=== PATIENT | female | born 1990 | race Caucasian/White ===

== ENCOUNTER 2017-12-16 17:15 | Inpatient (IN) | payer OTHER ==
[2017-12-16] MEDS ORDERED: Lactated Ringer's 1,000 ML IV ONE (17:38)
[2017-12-16] MEDS ORDERED: Lactated Ringer's 1,000 ML IV SCH (17:45)
[2017-12-16 18:01] LABS: BASO % 0.2 % (0.0-2.0); EOS # 0.1 K/uL (0.0-0.7); EOS % 0.8 % (0.0-4.0); HEMOGLOBIN 12.9 g/dL (11.0-16.0); LYMPH % 19.7 % (20.0-40.0); MEAN CELL VOLUME 91.7 fL (81.0-99.0); MEAN CORPUSCULAR HEMOGLOBIN 31.4 pg (27.0-31.0); MEAN CORPUSCULAR HGB CONC 34.3 g/dL (33.0-37.0); MEAN PLATELET VOLUME 7.8 fL (7.2-11.7); MONO # 0.7 K/uL (0.0-0.8); MONO % 6.4 % (0.0-10.0); NEUT # 7.5 K/uL (1.8-7.0); NEUT % 72.9 % (50.0-75.0); RBC 4.11 Mil/uL (3.80-5.20); RED CELL DISTRIBUTION WIDTH 13.6 % (11.5-14.5); WHITE BLOOD COUNT 10.3 K/uL (4.8-10.8)
[2017-12-16 18:13] LABS: SQUAMOUS EPITHIAL 2 /hpf (0-5); URINE BACTERIA RARE (<OCC); URINE BILIRUBIN NEGATIVE (NEGATIVE); URINE BLOOD NEGATIVE (NEGATIVE); URINE CLARITY Clear (Clear); URINE COLOR Yellow (YELLOW); URINE GLUCOSE (UA) NORMAL (Normal); URINE HYALINE CAST 0-2 /lpf (0-2); URINE LEUKOCYTE ESTERASE NEG Leu/uL (Negative); URINE PROTEIN NEGATIVE (NEGATIVE); URINE UROBILINOGEN NORMAL mg/dL (0.2-1.0)
[2017-12-16 18:18] LABS: ALB/GLOB RATIO 1.2 (1.0-2.1); ALT/SGPT 20 U/L (9-52); AST/SGOT 26 U/L (14-36); BLOOD UREA NITROGEN 9 mg/dL (7-17); CALCIUM 9.4 mg/dl (8.6-10.4); GFR NON-AFRICAN AMERICAN > 60
[2017-12-16] MEDS ORDERED: Bupivacaine HCl/FentaNYL Cit 100 ML EPI ONE (18:32)
[2017-12-16] MEDS ORDERED: ePHEDrine 50 mg/ml Inj ONE (19:30)
--- NOTE | 2017-12-16 19:40 | OBHP ---
Datetime: 12/16/2017 19:39 Dilatation, Provider: 7 Effacement, Provider: 90 Datetime: 12/16/2017 17:35 IP Adm Impression: Term, intrauterine IP Admit Plan: Admit to unit; Initiate labor protocol Admit Comment, IP Provider: Patient is a 27 year old at 38.6 weeks with WILBERTO (12/24/17) by US at 12 weeks and LMP (03/19/17), who presents to the [facility] with complaints of contractions that started 10 minutes before arrival to, which are every 2-3 minutes apart. Patient was seen in the office this morning with no cervical change noted on VE. Patient admits to movement but denies vaginal ble eding and leakage of fluid : Dr. 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 1. Admit to unit 2. Admission labs and orders 3. CEFM and [place] 4. LR @125MLS/HR 5. SVE 6. Epidural when patient requests 7. Expectant management 8. 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 Chaz Fernando DO, PGY-2 Attending Note: Patient seen and evaluated by me with the resident. I agree with the above. 27 y. o. P0, 38w 6d, latent phase of labor. GBS (-). Categoary 1 tracing. Patient is clincially stable. Spo ke with Dr. Rodriguez: admit, epdiural, admission labs, continuous EFM, anticipate vaginal delivery FHR - Baseline A Provider: 150 Contraction Comments Provider: 1-2 minutes Comments, ACOG Physical Exam: Gen: NAD Cardio: RRR, +S1, +S2 Pulm: CTA bilaterally Abdomen: Gravid, Tight( due to contraction) at the time of exam Ext: No edema, no cyanosis and no clubbing SVE: 2cm/80/0 EFM: 150, + accelerations TOCO: Contractions every 1-2 minutes Gestation - Est Wks by US: 38.6 IP Hx Assessment: The History has been Reviewed and is Current EGA AdmitDate IP: 38.6 IP Indication for Induction: Not Applicable IP Chief Complaint: Uterine contractions NICHD Variability Prov Fetus A: Moderate 6-25bpm NICHD Accel Fetus A IP Provider: 15X15 FHR Category Provider Fetus A: Category I NICHD Decel Fetus A IP Provider: None Station, Provider: 0
--- NOTE | 2017-12-16 19:43 | OBADHP ---
Datetime: 12/16/2017 19:39 FHR - Baseline A Provider: 150 Membranes, Provider: Intact Contraction Comments Provider: 1-2 Vital Signs Provider: Reviewed NICHD Variability Prov Fetus A: Moderate 6-25bpm NICHD Accel Fetus A IP Provider: 15X15 FHR Category Provider Fetus A: Category I NICHD Decel Fetus A IP Provider: None Dilatation, Provider: 7 Effacement, Provider: 90 Station, Provider: 0 Datetime: 12/16/2017 17:35 Admit Comment, IP Provider: Patient is a 27 year old at 38.6 weeks with WILBERTO (12/24/17) by US at 12 weeks and LMP (03/19/17), who presents to the [facility] with complaints of contractions that started 10 minutes before arrival to, which are every 2-3 minutes apart. Patient was seen in the office this morning with no cervical change noted on VE. Patient admits to movement but denies vaginal ble eding and leakage of fluid : Dr. Rodriguez OB Hx: G1, no complications Rn Progressive Care Unit Hx: Menarche: 15 Triad: 15/ regular Denies Hx of fibroids, ovarian cyst, STDs PMHx: Denies PSHx: Denies FHx: Denies Medications: vitamins Allergies: NKDA VS: See chart, WNL PE: See in PE comments A/P: Patient is a 27 year old at 38.6 weeks with WILBERTO (12/24/17) by US and LMP (03/19/17), wh o presents to the [facility] with complaints of contractions that started 10 minutes before arrival to, whi ch are every 2-3 minutes apart. 1. Admit to unit 2. Admission labs and orders 3. CEFM and [place] 4. LR @125MLS/HR 5. SVE 6. Epidural when patient requests 7. 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 Chaz Fernando DO, PGY-2 Attending Note: Patient seen and evaluated by me with the resident. I agree with the above. 27 y. o. P0, 38w 6d, latent phase of labor. GBS (-). Categoary 1 tracing. Patient is clincially stable. Spo ke with Dr. Rodriguez: admit, epdiural, admission labs, continuous EFM, anticipate vaginal delivery Comments, ACOG Physical Exam: Gen: NAD Cardio: RRR, +S1, +S2 Pulm: CTA bilaterally Abdomen: Gravid, Tight( due to contraction) at the time of exam Ext: No edema, no cyanosis and no clubbing SVE: 2cm/80/0 EFM: 150, + accelerations TOCO: Contractions every 1-2 minutes Gestation - Est Wks by US: 38.6 IP Hx Assessment: The History has been Reviewed and is Current IP Chief Complaint: Uterine contractions EGA AdmitDate IP: 38.6 IP Adm Impression: Term, intrauterine IP Admit Plan: Admit to unit; Initiate labor protocol
--- NOTE | 2017-12-16 20:43 | OBPN ---
Datetime: 12/16/2017 20:39 IP Progress Impression: Normal progression of labor IP Procedures: Sterile Vag Exam IP Progress Plan: Continue present management Contraction Comments Provider: q1-3 FHR - Baseline A Provider: 130 IP Progress Note Comment: pt was seen at bed side ve fd/100/0 s/p epidural will startb pushing soon anticipate NICHD Accel Fetus A IP Provider: 15X15 FHR Category Provider Fetus A: Category I NICHD Variability Prov Fetus A: Moderate 6-25bpm Dilatation, Provider: 10 Effacement, Provider: 100 Station, Provider: 0 NICHD Decel Fetus A IP Provider: None Datetime: 12/16/2017 19:39 Membranes, Provider: Intact Vital Signs Provider: Reviewed Datetime: 12/16/2017 17:35 Gestation - Est Wks by US: 38.6
--- NOTE | 2017-12-16 20:43 | OBADHP ---
Datetime: 12/16/2017 20:39 FHR - Baseline A Provider: 130 Contraction Comments Provider: q1-3 NICHD Variability Prov Fetus A: Moderate 6-25bpm NICHD Accel Fetus A IP Provider: 15X15 FHR Category Provider Fetus A: Category I NICHD Decel Fetus A IP Provider: None Dilatation, Provider: 10 Effacement, Provider: 100 Station, Provider: 0 Datetime: 12/16/2017 17:35 EGA AdmitDate IP: 38.6 IP Adm Impression: Term, intrauterine ; Active labor
[2017-12-16] MEDS ORDERED: Tdap Vaccine 0.5 ml Vial (10-64 yrs) IM ONE (20:46)
[2017-12-16] MEDS ORDERED: Oxytocin 30 UNIT 30 UNITS/500 ML BAG IV ONE (21:00)
--- NOTE | 2017-12-17 00:39 | OBDS ---
DELIVERY PERSONNEL Nurse Repair Operator Certified: N/A Delivery Doctor: Katey Rodriguez MD Scrub Nurse: N/Bernabe Sill Worker: Charline Prado RN Anesthesiologist: DR PEREYRA Counselor At Law: SAME Resident: N/A MATERNAL INFORMATION Delivery Anesthesia: Epidural Estimated Blood Loss (ml): 400 Maternal Complications: None Provider Comments: baby de;liverd in dee dee. cord arround baby rml made. end clean 9/9 cord gas sent no com LABOR SUMMARY EDC: 12/24/2017 00:00 No. Babies in Womb: 1 Attempted: No Labor Anesthesia: None LABOR INFORMATION Reason for Induction: Not Applicable Onset of Labor: 12/16/2017 17:00 Complete Dilatation: 12/16/2017 20:35 Group B Beta Strep: Negative Steroids Given: None Reason Steroids Not Administered: Not Applicable MEMBRANES Membranes Rupture Method: Artificial Rupture of Membranes: 12/16/2017 20:35 Length of Rupture (hrs): 3.68 Amniotic Fluid Color: Clear Amniotic Fluid Amount: Moderate Amniotic Fluid Odor: Normal STAGES OF LABOR Stage 1 hrs: 3 Stage 1 min: 35 Stage 2 hrs: 3 Stage 2 min: 41 Stage 3 hrs: 0 Stage 3 min: 1 Total Time in Labor hrs: 7 Total Time in Labor min: 17 VAGINAL DELIVERY Laceration Extension: Second Degree Laceration Type: Perineal; Vaginal Laceration Repair Note: repaired with 2 vircy and 3 chromic Sponge Count Correct: Yes Sharps Count Correct: Yes BABY A INFORMATION Infant Delivery Date/Time: 12/17/2017 00:16 Method of Delivery: Vaginal Born in Route : No : N/A Forceps: N/A Vacuum Extraction: N/A Shoulder Dystocia : No SHOULDER DYSTOCIA BABY A Delivery Date/Time: 12/17/2017 00:16 PRESENTATION/POSITION BABY A Presentation: Cephalic Cephalic Presentation: Vertex Vertex Position: Left Occipital Anterior Breech Presentation: N/A PLACENTA INFORMATION BABY A Placenta Delivery Time : 12/17/2017 00:17 Placenta Method of Delivery: Spontaneous Placenta Status: Delivered INFORMATION BABY A Gestational Age at Delivery: 38.0 Gestational Status: Term Outcome : Liveborn Infant Condition : Stable Infant Sex: Female IDENTIFICATION/MEDS BABY A ID Band Number: [id number] Sensor Number: [id number] WEIGHT/LENGTH BABY A Birthweight (gms): 2909 Weight (lb): 6 Infant Weight (oz): 7 Length Inches: 19.00 Infant Length cms: 48.3 CORD INFORMATION BABY A No. Cord Vessels: 3 ASSESSMENT BABY A Complications: None Physical Findings at Delivery: Within Normal Limits Respirations: Appears Normal Infant Care By: arely prado rn Transferred To: Nursery
[2017-12-17] MEDS: Benzocaine/Menthol 20%-0.5% Topical Spray (60 ml) TOP PRN (02:44)
[2017-12-17 08:24] LABS: BASO % 0.2 % (0.0-2.0); EOS % 0.1 % (0.0-4.0); LYMPH % 6.9 % (20.0-40.0); MEAN CELL VOLUME 91.9 fL (81.0-99.0); MEAN CORPUSCULAR HEMOGLOBIN 31.5 pg (27.0-31.0); MEAN CORPUSCULAR HGB CONC 34.2 g/dL (33.0-37.0); MEAN PLATELET VOLUME 7.8 fL (7.2-11.7); MONO # 0.7 K/uL (0.0-0.8); MONO % 5.2 % (0.0-10.0); NEUT # 12.2 K/uL (1.8-7.0); NEUT % 87.6 % (50.0-75.0); PLATELET COUNT 184 K/uL (130-400); RBC 3.25 Mil/uL (3.80-5.20); RED CELL DISTRIBUTION WIDTH 13.7 % (11.5-14.5); WHITE BLOOD COUNT 13.9 K/uL (4.8-10.8)
[2017-12-17 08:37] LABS: HEMOGLOBIN 10.2 g/dL (11.0-16.0)
[2017-12-17 09:21] LABS: HYPOCHROMIC SLIGHT; LYMPHOCYTE 9 % (20-40); MONOCYTE 4 % (0-10); NEUTROPHIL 87 % (50-75); PLATELET ESTIMATE NORMAL (NORMAL); TOTAL CELLS COUNTED 100
[2017-12-17] MEDS ORDERED: Tdap Vaccine 0.5 ml Vial (10-64 yrs) IM ONE (10:45)
[2017-12-17] MEDS: Oxycodone/Acetaminophen 5/325 mg Tab PO PRN ×2 (12:35→20:10)
[2017-12-17] MEDS ORDERED: Gadodiamide 287 mg/ml 20 ml IV ONE (15:25)
--- NOTE | 2017-12-17 16:53 | MRI ---
Date of service: 12/17/2017 PROCEDURE: MR LUMBAR SPINE WITH AND WITHOUT CONTRAST HISTORY: leg weakness COMPARISON: None available. TECHNIQUE: Multiecho multiplanar sequences were performed through the lumbar spine with and without the use of intravenous contrast. FINDINGS: Normal lumbar lordosis. Vertebral body heights are preserved. Marrow signal unremarkable. Conus medullaris unremarkable at the level of L1. Central canal appears widely patent at the level of the conus medullaris. Prevertebral paraspinal soft tissues are unremarkable. No abnormal epidural or intrathecal enhancement. Vertebral body heights and is within normal limits throughout as well. T12-L1: No disc herniation, spinal canal stenosis or neural foraminal narrowing. L1-2: No disc herniation, spinal canal stenosis or neural foraminal narrowing. L2-3: No disc herniation, spinal canal stenosis or neural foraminal narrowing. L3-4: No disc herniation, spinal canal stenosis or neural foraminal narrowing. L4-5: No disc herniation, spinal canal stenosis or neural foraminal narrowing. L5-S1: No disc herniation, spinal canal stenosis or neural foraminal narrowing. OTHER FINDINGS: Apparent prominent distention the urinary bladder. Expected enlargement of the uterus is appreciated in this patient recently today, 12/17/2017. IMPRESSION: Unremarkable pre and post contrast enhanced MRI of the lumbar spine. Incidental note is made of prominent distention of the urinary bladder.
--- NOTE | 2017-12-17 20:45 | OBPPN ---
Datetime: 12/17/2017 20:28 PP Progress Note Prov: pt c/o pain and difficulty walking.pt was having too much pain on walking and even sliding feet. states sewnation is less.min bleeding,no n/v, tolerating deit.pt voided on her se lf. anthesia called.mri with contrast ordered. mri neg pelvic xray pubic bone sepration. plan pain management physical therapy consult in am abdominal binder cont pp care
--- NOTE | 2017-12-17 22:46 | CP.PCM.PN ---
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 Epidural was placed on first try and working properly. At time of evaluation patient reported that she is unable to lift her legs to walk , she was able to stand but walked with curling up her toes and moving her feet without lifting of the ground. Patient reported that she has urge to go to bathroom but also sometimes involuntarily dribbles urine. Patient reports bllateral inguinal pain, also lumbar back pain, and pain along SI joints. Upon evaluation patient had tenderness over her lumbar and sacral area, no numbness, motor strength was evaluated on the legs, it did seem to be like 3 to 4/5 but patient also was guarding from pain. MRI was ordered to rule out hematoma as a source for the urinary incontinece and leg weakness. Also positioning during the labor was considered as a cause, patient's small habitus, and pubic separation was part of differential. Objective - Vital Signs/Intake and Output Vital Signs (last 24 hours): Temp Pulse Resp BP Pulse Ox 99 F 98 H 18 105/62 100 12/17/17 16:00 12/17/17 16:00 12/17/17 16:00 12/17/17 16:00 12/17/17 16:00 - Medications Medications: Current Medications Benzocaine/Menthol (Dermoplast 20%-0.5%) 0 ml TOP Q6 PRN PRN Reason: Perineal Discomfort Last Admin: 12/17/17 02:44 Dose: 60 ml Docusate Sodium (Colace) 100 mg PO BID [facility] Last Admin: 12/17/17 19:02 Dose: 100 mg Lactated Ringer's (Lactated Ringer's) 1,000 mls @ 125 mls/hr IV .Q8H [facility] Last Admin: 12/16/17 20:09 Dose: 125 mls/hr Ibuprofen (Motrin Tab) 600 mg PO Q6 PRN PRN Reason: Pain, Mild (1-3) Last Admin: 12/17/17 06:31 Dose: 600 mg Oxycodone/Acetaminophen (Percocet 5/325 Mg Tab) 1 tab PO Q4H PRN PRN Reason: Pain, moderate (4-7) Stop: 12/19/17 20:57 Last Admin: 12/17/17 12:35 Dose: 1 tab Oxycodone/Acetaminophen (Percocet 5/325 Mg Tab) 2 tab PO Q4H PRN PRN Reason: Pain, severe (8-10) Stop: 12/19/17 20:45 Last Admin: 12/17/17 20:10 Dose: 2 tab - Labs Labs: 12/17/17 08:15 12/16/17 17:55
[2017-12-18] MEDS: Oxycodone/Acetaminophen 5/325 mg Tab PO PRN ×5 (01:00→22:05)
--- NOTE | 2017-12-18 06:56 | OBPPN ---
Datetime: 12/18/2017 06:52 PP Pain Prov: Within normal limits PP Nausea Prov: Denies PP Flatus Prov: Yes PP Comments Phys Exam Prov: abd fundus below umblicus ext no edema difficulty walking PP Impression Prov: Normal progression PP Plan Prov: Continue present management PP Progress Note Prov: pt was seen at bed side, pain under control,no n/v, tolerating deit,voiding d iifitheresa avalos. pain at time of walking mri n pelvc x ray pubic sepration plan consult orthopedic pt pain management cont binder f/ Vital Signs Provider PP: Reviewed; Within Normal Limits
[2017-12-18 08:28] LABS: SQUAMOUS EPITHIAL 4 /hpf (0-5); URINE BACTERIA RARE (<OCC); URINE BILIRUBIN NEGATIVE (NEGATIVE); URINE BLOOD 3+ (NEGATIVE); URINE CLARITY Hazy (Clear); URINE COLOR Yellow (YELLOW); URINE GLUCOSE (UA) NORMAL (Normal); URINE LEUKOCYTE ESTERASE 1+ Leu/uL (Negative); URINE PROTEIN NEGATIVE (NEGATIVE); URINE UROBILINOGEN NORMAL mg/dL (0.2-1.0)
--- NOTE | 2017-12-18 13:41 | RAD ---
Date of service: 12/17/2017 PROCEDURE: Radiographs of the pelvis. HISTORY: pain after delivery.cant walk COMPARISON: None. FINDINGS: BONES: 3.7 cm of pubic symphyseal diastasis present. Recent status. Hips: Grossly unremarkable. JOINTS: Sacroiliac Joints: Unremarkable. Pubic Symphysis:3.7 cm of pubic symphyseal diastasis present. Recent status. OTHER FINDINGS: None. IMPRESSION: 3.7 cm of pubic symphyseal diastasis present. Recent status. No fracture seen Comments: Study marked for PA review. Although this study states, exam sent to [email or web address] for preliminary report. No such report is appreciated at this time
--- NOTE | 2017-12-18 13:58 | CP.PCM.CON ---
History of Present Illness - History of Present Illness History of Present Illness: Orthopedic consult: Patient is a 27 y/o female with no significant PMH c/o bilateral hip pain. She is post day 1 from her first vaginal . She c/o symmetric lateral hip pain which began following the of her baby. The pain was severe to the point that she was unable to bear weight. Over the pasfew hours the pain h as significantly improved with pain medications and she was able to ambulate using a walker with physical therapy. She admits to pain that radiates to her lower back but denies numbness or tingling traveling down her lower extremities. She also denies CP/SOB/N/V/D/fever/dysuria/melena. Review of Systems - Review of Systems All systems: reviewed and no additional remarkable complaints except Review of Systems: as per HPI Past Patient History - Past Medical History & Family History Past Medical History?: No Past Family History: Reviewed and not pertinent - Past Social History Smoking Status: Never Smoked Alcohol: None Drugs: Denies - CARDIAC Hx Cardiac Disorders: No - PULMONARY Hx Respiratory Disorders: No - NEUROLOGICAL Hx Neurological Disorder: No - HEENT Hx HEENT Problems: No - RENAL Hx Chronic Kidney Disease: No - ENDOCRINE/METABOLIC Hx Endocrine Disorders: No - HEMATOLOGICAL/ONCOLOGICAL Hx Blood Disorders: No - INTEGUMENTARY Hx Dermatological Problems: No - MUSCULOSKELETAL/RHEUMATOLOGICAL Hx Musculoskeletal Disorders: No - GASTROINTESTINAL Hx Gastrointestinal Disorders: No - GENITOURINARY/GYNECOLOGICAL Hx Genitourinary Disorders: No - PSYCHIATRIC Hx Psychophysiologic Disorder: No - SURGICAL HISTORY Hx Surgeries: No Meds Allergies/Adverse Reactions: Allergies Allergy/AdvReac Type Severity Reaction Status Date / Time No Known Allergies Allergy Verified 12/16/17 17:29 - Medications Medications: Current Medications Benzocaine/Menthol (Dermoplast 20%-0.5%) 0 ml TOP Q6 PRN PRN Reason: Perineal Discomfort Last Admin: 12/17/17 02:44 Dose: 60 ml Docusate Sodium (Colace) 100 mg PO BID [facility] Last Admin: 12/18/17 10:32 Dose: 100 mg Lactated Ringer's (Lactated Ringer's) 1,000 mls @ 125 mls/hr IV .Q8H [facility] Last Admin: 12/16/17 20:09 Dose: 125 mls/hr Ibuprofen (Motrin Tab) 600 mg PO Q6 PRN PRN Reason: Pain, Mild (1-3) Last Admin: 12/17/17 06:31 Dose: 600 mg Oxycodone/Acetaminophen (Percocet 5/325 Mg Tab) 1 tab PO Q4H PRN PRN Reason: Pain, moderate (4-7) Stop: 12/19/17 20:57 Last Admin: 12/17/17 12:35 Dose: 1 tab Oxycodone/Acetaminophen (Percocet 5/325 Mg Tab) 2 tab PO Q4H PRN PRN Reason: Pain, severe (8-10) Stop: 12/19/17 20:45 Last Admin: 12/18/17 10:33 Dose: 2 tab Physical Exam - Constitutional Appears: Well, No Acute Distress - Head Exam Head Exam: ATRAUMATIC, NORMOCEPHALIC - Eye Exam Eye Exam: EOMI, Normal appearance, PERRL - ENT Exam ENT Exam: Mucous Membranes Moist - Respiratory Exam Respiratory Exam: NORMAL BREATHING PATTERN - Cardiovascular Exam Cardiovascular Exam: +S1, +S2 - GI/Abdominal Exam GI & Abdominal Exam: Distended, Soft, Tenderness (mildly due to ) - Extremities Exam Additional comments: B/l hip: mild tenderness diffuse lateral hips, tenderness to SI joints FROM bilateral hips with pain motor intact EHL/FHL/TA/G/Q/HS/HF sensation intact SP/DP/TN pedal pulses intact comps soft NT - Neurological Exam Neurological exam: Alert, Oriented x3 - Psychiatric Exam Psychiatric exam: Normal Affect, Normal Mood - Skin Skin Exam: Normal Color, Warm Results - Vital Signs Recent Vital Signs: Last Vital Signs Temp 99 F 12/17/17 16:00 Pulse 98 H 12/17/17 16:00 Resp 18 12/17/17 16:00 BP 105/62 12/17/17 16:00 Pulse Ox 100 12/17/17 16:00 - Labs Result Diagrams: 12/17/17 08:15 12/16/17 17:55 Labs: Laboratory Results - last 24 hr 12/18/17 06:36 Urine Color Yellow Urine Clarity Hazy Urine pH 6.0 Ur Specific [place] 1.008 Urine Protein Negative Urine Glucose (UA) Normal Urine Ketones Negative Urine Blood 3+ H Urine Nitrate Negative Urine Bilirubin Negative Urine Urobilinogen Normal Ur Leukocyte Esterase 1+ H Urine WBC (Auto) 24 H Urine RBC (Auto) 162 H Ur Squamous Epith Cells 4 Urine Bacteria Rare - Impressions Impression: Accession No. : [id number] Patient Name / ID : SANCHO HAMMOND / [id number] Exam Date : 12/17/2017 18:35:17 ( Approved ) Study Comment : Sex / Age : F / 27Y Creator : Sima Henriquez V. Dictator : Sima Henriquez V. Curve Saw Operator : Airplane Captain : Sima Henriquez V. Approver2 : Report Date : 12/18/2017 13:37:45 My Comment : Date of service: 12/17/2017 PROCEDURE: Radiographs of the pelvis. HISTORY: pain after delivery.cant walk COMPARISON: None. FINDINGS: BONES: 3.7 cm of pubic symphyseal diastasis present. Recent status. Hips: Grossly unremarkable. JOINTS: Sacroiliac Joints: Unremarkable. Pubic Symphysis:3.7 cm of pubic symphyseal diastasis present. Recent status. OTHER FINDINGS: None. IMPRESSION: 3.7 cm of pubic symphyseal diastasis present. Recent status. No fracture seen Comments: Study marked for PA review. Although this study states, exam sent to [facility] for preliminary report. No such report is appreciated at this time Assessment & Plan (1) Diastasis of symphysis pubis during delivery Assessment and Plan: -No acute orthopedic intervention at this time -PT/OT WBAT with assistive aid -pain control -abdominal binder for comfort -If symptoms persist or worsen, f/u in office with Dr. Merlos -orthopedically stable -please reconsult as needed -above d/w Dr. Merlos in agreement Status: Acute
[2017-12-19] MEDS: Oxycodone/Acetaminophen 5/325 mg Tab PO PRN ×3 (06:28→17:49)
--- NOTE | 2017-12-20 07:50 | OBPPN ---
Datetime: 12/20/2017 07:43 PP Pain Prov: Within normal limits PP Nausea Prov: Denies PP Flatus Prov: Yes PP BM Prov: Yes PP Breasts Prov: Not Done PP Heart Prov: Normal PP Lungs Prov: Normal PP Abdomen/Uterus Prov: Normal PP Lochia Prov: Normal PP Vulva/Perineum Prov: Normal PP CVA Tenderness Prov: Normal PP Extremities Prov: Normal PP C/S Incision Prov: Not Applicable PP Progress Prov: Normal PP Comments Phys Exam Prov: Fundus firm and non-tender Mild lochia PP Impression Prov: Normal progression PP Plan Prov: Discharge PP Impression Other Prov: Diastesis of Symp Pubis PP Progress Note Prov: Pt seen and examined per Dr. Rodriguez's request + BM after Dulcolax Supp Pain controlled for the most part with Motrin Ambulating with a walker and stated that she already has a walker at home Advise to continue with PT plan at home as already arranged for her VSS Stable at this time Advised to increase po water intake and to continue Colace, Dermoplast, Sitzs baths and Hydrocorti sone cream Will D/C home with instructions and Rx for Motrin and Percocet, as per Dr. Rodriguez. IP PP Procedures: None Vital Signs Provider PP: Reviewed; Within Normal Limits
--- NOTE | 2017-12-20 07:52 | OBDCSUM ---
Datetime: 12/20/2017 07:48 Discharged to, Provider: Home Discharged to, Provider: Home Follow up at, Provider: Dr Rodriguez Disch Instr Activity: Normal activity; May Shower Disch Instr Diet: Regular Discharge Diet restrict Prov: None Discharge Instructions, Provider: Routine instructions given Discharge Diagnosis, Provider: Term Delivered Discharge Time: 12/20/2017 12:00 Follow up in weeks, Provider: 6 weeks Disch Referrals: None Contraception discussed, Prov: Yes Disch Activity Restrictions: No exercising; No lifting; No driving; Minimize stair-climbing; No sexu al activity; Nothing in vagina - [place], tampons, douche Disch Activity Restrictions: No exercising; No lifting; No driving; Minimize stair-climbing; No sexu al activity; Nothing in vagina - [place], tampons, douche Discharge Comment, Provider: Pt seen and examined per Dr. Rodriguez's request + BM after Dulcolax Supp Pain controlled for the most part with Motrin Ambulating with a walker and stated that she already has a walker at home Advise to continue with PT plan at home as already arranged for her VSS Stable at this time Advised to increase po water intake and to continue Colace, Dermoplast, Sitzs baths and Hydrocorti sone cream Will D/C home with instructions and Rx for Motrin and Percocet, as per Dr. Rodriguez. Discharge Diagnosis Prov Other: Diastesis of Symphysis Pubis Contraception after Delivery: Undecided
[2017-12-20] MEDS ORDERED: Influenza Vaccine 60 MCG/0.5 ML SYR (3 yr & up) IM ONE (09:30)
[2017-12-20] MEDS: Benzocaine/Menthol 20%-0.5% Topical Spray (60 ml) TOP PRN (09:30)
[2017-12-20] MEDS ORDERED: Hydrocortisone 1% Cream (30 GM) TOP SCH (10:00)
[2017-12-20 17:12] VITALS: BP 119/74; PULSE 96; RESP 18; TEMP 98.1; O2SAT 100
== END 2017-12-20 13:11 | disposition home or self-care (01) | DRG 502 ==
LOC: C.EROB 17:15 → C.4D 17:43 → C.4M 12-17 02:25
PROVIDERS: ADMIT Obstetrics & Gynecology; ATTEND Obstetrics & Gynecology
PROC: 10E0XZZ Delivery of Products of Conception, External Approach (ICD-10-PCS; principal; 2017-12-17)
PROC: 0KQM0ZZ Repair Perineum Muscle, Open Approach (ICD-10-PCS; 2017-12-17)
PROC: 10907ZC Drainage of Amniotic Fluid, Therapeutic from Products of Conception, Via Natural or Artificial Opening (ICD-10-PCS; 2017-12-17)
DX: S73.005A Unspecified dislocation of left hip, initial encounter (principal); S73.004A Unspecified dislocation of right hip, initial encounter; O70.1 Second degree perineal laceration during delivery; R26.2 Difficulty in walking, not elsewhere classified; O90.89 Other complications of the puerperium, not elsewhere classified; R32 Unspecified urinary incontinence; Z3A.38 38 weeks gestation of pregnancy; Z37.0 Single live birth

== ENCOUNTER 2018-03-28 13:02 | Outpatient (CLI) | payer OTHER | END 2018-03-28 13:03 | disposition home or self-care (01) | LOC: C.RADH 13:02 ==